=== PATIENT | male | born 1965 | race Caucasian/White ===

== ENCOUNTER 2016-12-07 14:10 | Emergency (ER) | payer SELFPAY ==
--- NOTE | 2016-12-07 14:25 | EDPHY ---
H & P Stated Complaint: R flank pain x1 hour Time Seen by Provider: 12/07/16 14:25 - Personal History Current Tetanus/Diphtheria Vaccine: No Tetanus Vaccine Date: 2004 - Medical/Surgical History Hx Asthma: No Hx Chronic Respiratory Disease: No Hx Diabetes: No Hx Cardiac Disease: No Hx Renal Disease: No Hx Cirrhosis: No Hx Alcoholism: No Hx HIV/AIDS: No Hx Splenectomy or Spleen Trauma: No Other PMH: no PMH. PSH: foot L ORIF - Social History Smoking Status: Never smoked Constitutional: Initial Vital Signs Temperature (C) 36.4 C 12/07/16 14:12 Heart Rate 100 12/07/16 14:12 Respiratory Rate 20 12/07/16 14:12 Blood Pressure 169/107 H 12/07/16 14:12 O2 Sat (%) 99 12/07/16 14:12 O2 Delivery Mode Room Air Allergies/Adverse Reactions: No Known Allergies Allergy (Unverified 12/07/16 14:29) Home Medications: Medication Instructions Recorded Ibuprofen 12/07/16 Tamsulosin HCl [Flomax 0.4 MG (*)] 0.4 mg PO DAILY #10 cap 12/07/16 oxyCODONE IR [Oxycodone Ir (*)] 5 - 10 mg PO Q6 PRN #20 tab 12/07/16 Medical Decision Making - Diagnostics Imaging Results: Imaging Impressions Abdomen/Pelvis CT 12/07/16 14:36 Impression: 1. Mild to moderate right hydroureteronephrosis, secondary to a 6.5 x 5 mm obstructing calculus in the proximal right ureter. 2. Additional nonobstructing calyceal calculi in both kidneys. No left hydronephrosis. 3. Atherosclerotic aorta without aneurysm. 4. Sigmoid diverticulosis without diverticulitis. Attention: This CT examination is specifically designed to evaluate patients who are clinically suspected of having acute obstructive uropathy. This examination does not use radiographic contrast, and as such, provides only a limited evaluation of the abdomen, pelvis and retroperitoneum. If there is further clinical suspicion for pathological conditions other than obstructive uropathy, a complete CT evaluation of the abdomen and pelvis utilizing intravenous, oral, and rectal contrast should be considered. Imaging: Discussed imaging studies w/ call or contact centre operator Radiologist ED Course/Re-evaluation: CHIEF COMPLAINT: Right flank pain HISTORY OF PRESENT ILLNESS: This patient is a 51 y/o male complaining of right flank pain onset Tuesday and then returning this afternoon. His initial episode of pain was brief, and resolved with Zainab-seltzer. His discomfort returned more severely after lunch today. The pain started in his back on the right, and now radiates towards his groin area. He endorses nausea, and vomited following lunch. He denies prior history of kidney stones or other intraabdominal pathologies. He denies fever, diarrhea, dysuria, chest pain, shortness of breath, or other associated symptoms. REVIEW OF SYSTEMS: A 10 point review of systems was performed and is negative with the exception of the elements mentioned in the history of present illness. PHYSICAL EXAM: HR, BP, O2 Sat, RR. Temp noted General Appearance: Alert, well hydrated, appropriate, and non-toxic appearing. Head: Atraumatic without scalp tenderness or obvious injury Eyes: Pupils equal, round, reactive to light and accommodation, EOMI, no trauma , no injection. Ears: Clear bilaterally, no perforation, normal landmarks Nose: Atraumatic, no rhinorrhea, clear. Throat: There is no erythema or exudates, no lesions, normal tonsils, mucus membranes moist. Neck: Supple, 2+ carotid upstroke, nontender, no lymphadenopathy. Respiratory: No retractions, no distress, no wheezes, and no accessory muscle use. Lungs are clear to auscultation bilaterally. Cardiovascular: Regular rate and rhythm, no murmurs, rubs, or gallops. Bilateral carotid, radial, dorsalis pedis, and posterior tibial pulses intact. Good capillary refill all extremities. Gastrointestinal: Abdomen is soft, nontender, non-distended, no masses, no rebound, no guarding, no peritoneal signs. Musculoskeletal: Normal active ROM of all extremities, atraumatic. Neurological: Alert, appropriate, and interactive. The patient has normal DTRs and non-focal cranial nerves, motor, sensory, and cerebellar exam. Skin: No rashes, good turgor, no nodules on palpation. Past medical history: Denies Past surgical history: Left foot surgery Family history: Noncontributory Social history: Friends at bedside. Lives in [place]. Works as a contractor. DIFFERENTIAL DIAGNOSIS: The differential diagnosis for the patient's flank pain included but was not limited to musculoskeletal causes, kidney stone, pyelonephritis, shingles, diverticulitis, appendicitis, and aortic aneurysm. MEDICAL DECISION MAKIN51 y/o male presents with right-sided flank pain onset today after lunch with one similar episode Tuesday. Physical exam reveals pain in the right flank and right lower abdomen, no tenderness or change with palpation. Plan for CT abdomen /pelvis without contrast, UA, CBC, BMP. Plan to administer 1mg IV Dilaudid and 30mg IV Ketorolac for symptom relief. 15:19 Reassessed the patient. He is feeling much better with pain medication. Labs unremarkable. 15:[address] Ledesma, radiologist. CT shows 6mm x 5mm proximal stone in the right ureter. No evidence of infection. See full report above. Administered 0.4mg PO Flomax. Plan to discharge home in good condition with prescriptions for Flomax and Oxycodone, referral to urology. Follow up and return precautions discussed. The patient is comfortable with this plan. - Data Points Laboratory Results: Laboratory Results 12/07/16 14:30 12/07/16 14:30 12/07/16 12/07/16 12/07/16 14:30 14:30 14:20 WBC 8.31 10^3/uL 10^3/uL (3.80-9.50) RBC 4.93 10^6/uL 10^6/uL (4.40-6.38) Hgb 15.4 g/dL g/dL (13.7-17.5) Hct 43.5 % % (40.0-51.0) MCV 88.2 fL fL (81.5-99.8) MCH 31.2 pg pg (27.9-34.1) MCHC 35.4 g/dL g/dL (32.4-36.7) RDW 13.2 % % (11.5-15.2) Plt Count 198 10^3/uL 10^3/uL (150-400) MPV 12.1 fL H fL (8.7-11.7) Neut % (Auto) 72.2 % % (39.3-74.2) Lymph % (Auto) 19.3 % % (15.0-45.0) [place] % (Auto) 6.9 % % (4.5-13.0) Eos % (Auto) 1.0 % % (0.6-7.6) Baso % (Auto) 0.2 % L % (0.3-1.7) Nucleat RBC Rel Count 0.0 % % (0.0-0.2) Absolute Neuts (auto) 6.01 10^3/uL 10^3/uL (1.70-6.50) Absolute Lymphs (auto) 1.60 10^3/uL 10^3/uL (1.00-3.00) Absolute Monos (auto) 0.57 10^3/uL 10^3/uL (0.30-0.80) Absolute Eos (auto) 0.08 10^3/uL 10^3/uL (0.03-0.40) Absolute Basos (auto) 0.02 10^3/uL 10^3/uL (0.02-0.10) Absolute Nucleated RBC 0.00 10^3/uL 10^3/uL (0-0.01) Immature Gran % 0.4 % % (0.0-1.1) Immature Gran # 0.03 10^3/uL 10^3/uL (0.00-0.10) Sodium 144 mEq/L mEq/L (134-144) Potassium 3.7 mEq/L mEq/L (3.5-5.2) Chloride 108 mEq/L mEq/L (97-110) Carbon Dioxide 22 mEq/l mEq/l (22-31) Anion Gap 14 mEq/L mEq/L (8-16) BUN 20 mg/dL mg/dL (7-23) Creatinine 1.2 mg/dL mg/dL (0.7-1.3) Estimated GFR > 60 Glucose 111 mg/dL H mg/dL (70-100) Calcium 10.0 mg/dL mg/dL (8.5-10.4) Urine Color YELLOW Urine Appearance HAZY Urine pH 5.0 (5.0-7.5) Ur Specific [place] 1.024 (1.002-1.030) Urine Protein NEGATIVE (NEGATIVE) Urine Ketones NEGATIVE (NEGATIVE) Urine Blood 3+ H (NEGATIVE) Urine Nitrate NEGATIVE (NEGATIVE) Urine Bilirubin NEGATIVE (NEGATIVE) Urine Urobilinogen 2.0 EU H EU (0.2-1.0) Ur Leukocyte Esterase NEGATIVE (NEGATIVE) Urine RBC 25-50 /hpf H /hpf (0-3) Urine WBC 3-5 /hpf H /hpf (0-3) Ur Epithelial Cells TRACE /lpf /lpf (NONE-1+) Urine Bacteria TRACE /hpf H /hpf (NONE SEEN) Urine Mucus 3+ /lpf H /lpf (NONE-1+) Urine Glucose NEGATIVE (NEGATIVE) Medications Given: Discontinued Medications Hydromorphone HCl (Dilaudid) 1 mg IVP EDNOW ONE Stop: 12/07/16 15:03 Last Admin: 12/07/16 15:10 Dose: 1 mg Sodium Chloride (Ns) 1,000 mls @ 0 mls/hr IV ONCE ONE; Wide Open PRN Reason: Protocol Stop: 12/07/16 14:36 Last Admin: 12/07/16 15:10 Dose: 1,000 mls Ketorolac Tromethamine (Toradol) 30 mg IVP EDNOW ONE Stop: 12/07/16 14:36 Last Admin: 12/07/16 15:16 Dose: 30 mg Tamsulosin HCl (Flomax) 0.4 mg PO EDNOW ONE Stop: 12/07/16 16:00 Last Admin: 12/07/16 16:15 Dose: 0.4 mg Departure - Departure Disposition: Home, Routine, Self-Care Clinical Impression: Kidney stone on right side Condition: Good Instructions: Kidney Stones (ED), How to Strain Your Urine (ED) Additional Instructions: Follow up with a urologist within one week. We have referred you to our urologist blood bank laboratory professional. Take your Flomax as prescribed. Take Oxycodone as prescribed as needed for severe pain. You may also take ibuprofen or Tylenol as directed below. Be sure to drink plenty of water as we discussed. Return to the emergency department for fever, severe pain, inability to urinate or other concerns. Strain urine to try and catch the kidney stone and bring this to the urology appointment. Adult Pain & Fever Control: We recommend Acetaminophen (Tylenol) and Ibuprofen (Motrin,Advil) for pain and fever control. When fever is high or pain severe, both drugs can be used at the same time, but at different intervals. Please note the time differences. Your dose is: Acetaminophen 650mg every 4 to 6 hours Ibuprofen 600mg every 6-8 hours with food Note: do not take Acetaminophen with Hydrocodone (Vicodin, Lortab) or Oxycodone (Percocet). These medications also contain Acetaminophen. No more than 3000mg of Acetaminophen should be taken in 24 hours (for an adult). Referrals: Paige Silverio MD [Medical Doctor] - As per Instructions Prescriptions: oxyCODONE IR [Oxycodone Ir (*)] 5 - 10 mg PO Q6 PRN #20 tab PRN Reason: Pain, Severe Tamsulosin HCl [Flomax 0.4 MG (*)] 0.4 mg PO DAILY #10 cap Report Scribed for: Casey Parisi Report Scribed by: Julia Rivera Date of Report: 12/07/16 Time of Report: 16:05
[2016-12-07] MEDS ORDERED: KETOROLAC 30 MG/1 ML SDV IVP ONE (14:35)
[2016-12-07] MEDS ORDERED: NS 1,000 ML IV ONE (14:35)
[2016-12-07 14:49] LABS: COLOR YELLOW; LEUKOCYTE ESTERASE,URINE NEGATIVE (NEGATIVE); NITRITE,URINE NEGATIVE (NEGATIVE)
[2016-12-07 14:53] LABS: BACTERIA TRACE /hpf (NONE SEEN); MUCUS 3+ /lpf (NONE-1+); RBC,URINE 25-50 /hpf (0-3)
[2016-12-07] MEDS ORDERED: HYDROmorphONE/DILAUDID 1 MG/ML INJ IVP ONE (15:02)
[2016-12-07 15:10] LABS: % IMMATURE GRANULYOCYTES 0.4 % (0.0-1.1); ABSOLUTE IMMATURE GRANULOCYTES 0.03 10^3/uL (0.00-0.10); ADD DIFF? NO; ADD MORPH? NO; ADD SCAN? NO; ATYPICAL LYMPHOCYTE FLAG 0 (0-99); FRAGMENT RBC FLAG 0 (0-99); HEMATOCRIT 43.5 % (40.0-51.0); HEMOGLOBIN 15.4 g/dL (13.7-17.5); LEFT SHIFT FLG 0 (0-99); LIPEMIA HEMOLYSIS FLAG 90 (0-99); MEAN CELL HEMOGLOBIN 31.2 pg (27.9-34.1); MEAN CELL HEMOGLOBIN CONCENTR. 35.4 g/dL (32.4-36.7); MEAN CELL VOLUME 88.2 fL (81.5-99.8); MEAN PLATELET VOLUME 12.1 fL (8.7-11.7); PLATELET CLUMPS FLAG 0 (0-99); PLATELET COUNT 198 10^3/uL (150-400); RED BLOOD CELL COUNT 4.93 10^6/uL (4.40-6.38); RED CELL DISTRIBUTION WIDTH 13.2 % (11.5-15.2)
[2016-12-07 15:16] LABS: ANION GAP 14 mEq/L (8-16); CARBON DIOXIDE 22 mEq/l (22-31); CHLORIDE 108 mEq/L (97-110); CREATININE 1.2 mg/dL (0.7-1.3); GLOMERULAR FILTRATION RATE > 60; GLUCOSE 111 mg/dL (70-100); POTASSIUM 3.7 mEq/L (3.5-5.2); SODIUM 144 mEq/L (134-144)
[2016-12-07] MEDS ORDERED: TAMSULOSIN HCL 0.4 MG CAP PO ONE (15:59)
[2016-12-07 16:59] VITALS: BP 130/75; PULSE 81; RESP 16; TEMP 98.6; O2SAT 95
== END 2016-12-07 17:24 | disposition home or self-care (01) ==
DX: N20.0 Calculus of kidney (principal); E86.9 Volume depletion, unspecified
CPT/HCPCS: 96374; J1170; J1885